=== PATIENT | female | born 1975 | race African-American/Black ===

== ENCOUNTER 2016-11-21 11:17 | Inpatient (IN) | payer OTHER ==
[~2016-11-21] VITALS: Ht 175.3 cm; Wt 61.0 kg
[2016-11-21] VITALS (15 sets, daily range): BP systolic 117–204; BP diastolic 55–72
[~2016-11-21 11:17] MED LIST: AMBIEN10 MG PO; AMBIEN5 MG PO; AMITRIPTYLINE H25 MG PO; APRESOLINE100 MG PO; ATIVAN1 MG PO; Ambien PO; Ativan PO; BENTYL20 MG PO; BYSTOLIC10 MG PO; Bystolic PO; CALCITRIOL0.5 MCG PO; CARAFATE1 GM PO; CARDIZEM CD120 MG PO; CARDURA4 MG PO; CATAPRES0.2 MG PO; CLONIDINE HCL0.2 MG PO; Cardura PO; Catapres PO; DILAUDID2 MG PO; DILAUDID4 MG PO; DILAUDID8 MG PO; DOXYCYCLINE HY100 MG PO; FUROSEMIDE80 MG PO; Feosol PO; HYDRALAZINE HC100 MG PO; IRON325 M1 PO; IRON325 MG PO; KLONOPIN0.5 M1 PO; LASIX80 MG PO; LEVAQUIN500 MG PO; LIDOPRIL 2.5%-1 EACH TP; Lasix PO; MEGACE20 MG PO; NORVASC10 MG PO; Norvasc PO; ONDANSETRON ODT4 MG PO; PHENERGAN25 MG PR; PHOSLO667 MG PO; PREDNISONE20 MG PO; PROMETHAZINE HC25 M1 PO; PROTONIX40 MG PO; Phoslo PO; Protonix PO; REGLAN5 MG PO; RENVELA800 MG PO; ROCALTROL0.5 MCG PO; Reglan PO; Rocaltrol PO; SYMBICORT60 INHALA1 IH; TRAZODONE HCL50 MG PO; VENTOLIN HFA18 GM IH; Vicodin,Norco 5/325 PO; ZOFRAN ODT4 MG PO
[2016-11-21 11:32] LABS: CREATININE 9.9 mg/dL (0.6-1.3); POTASSIUM 5.3 mEq/L (3.7-5.4)
[2016-11-21] MEDS ORDERED: ROCALTROL0.25 MCG PO (11:39)
[2016-11-21 11:47] LABS: BASOPHIL COUNT 0.1 K/uL (0-0.1); EOSINOPHIL (%) 6.6 % (0-5); EOSINOPHIL COUNT 0.6 K/uL (0-0.3); IMMATURE GRANULOCYTE (%) 0.1 % (0.0-0.7); IMMATURE GRANULOCYTE COUNT 0.1 K/uL; LYMPHOCYTE COUNT 3.3 K/uL (1.0-2.8); MONOCYTE (%) 8.3 % (3-12); MONOCYTE COUNT 0.8 K/uL (0-0.8); NEUTROPHIL (%) 50.3 % (45-76); NEUTROPHIL COUNT 4.8 K/uL (1.8-6.4)
[2016-11-21 11:54] LABS: CHLORIDE 107 mEq/L (99-109); POTASSIUM 5.5 mEq/L (3.7-5.4); SODIUM 140 mEq/L (136-147)
[2016-11-21 11:56] LABS: GLUCOSE 198 mg/dL (70-99)
[2016-11-21 11:57] LABS: ANION GAP 19 MEQ/L (2-14)
[2016-11-21 11:58] LABS: TOTAL BILIRUBIN 0.9 mg/dL (0.0-1.0)
[2016-11-21 11:58] LABS: HEMATOCRIT 37.2 % (36.0-46.0); MCH 26.7 PG (29.0-34.0); MCHC 33.1 G/DL (30.0-36.0); MCV 80.7 FL (83-99); RBC DIS.WIDTH-SD 61.2 % (39-53); RED BLOOD COUNT 4.61 M/uL (3.80-5.20); WHITE BLOOD COUNT 9.5 K/uL (4.1-10.2)
[2016-11-21 12:00] LABS: ALKALINE PHOSPHATASE 81 IU/L (3-129); GFR ESTIMATE (CALCULATED) 5 mL/min/
[2016-11-21 12:01] LABS: UREA NITROGEN (BUN) 80 mg/dL (9-23)
[2016-11-21 12:06] LABS: NRBC (%) 0.3 /100 WBC (0-0)
[2016-11-21 12:08] LABS: QUANTITATIVE HCG < 4.0 MIU/ML
[2016-11-21 12:14] LABS: BICARBONATE 20.4 mEq/L (22-26); CARBOXY HGB 3.1 % (0-5); METHEMOGLOBIN 0.4 % (0-1.5); PO2 106 mm Hg (80-100)
[2016-11-21 12:18] LABS: COMMENTS - BLOOD GASES A+C+; DEVICE 840; FI02 100 %; MECHANICAL RATE 16 resp/min; MODE AC; PCO2 60 mm Hg (35-45); PEEP 7 CM/H20; SITE LR; TIDAL VOLUME 450 ML; TOTAL RESP RATE 16 resp/min; pH 7.14 (7.35-7.45)
[2016-11-21 12:27] LABS: TROP-I INTERPRETATION NEGATIVE; TROPONIN-I 0.06 ng/mL (0.0-0.30)
[2016-11-21 12:31] LABS: HEMATOLOGY COMMENT 1 SMEAR COMPATIBLE; PLAT.SUFFICIENCY ADEQUATE; PLATELET COUNT 172 K/uL (156-360); USER ID TLW
[2016-11-21 15:24] LABS: MAGNESIUM 2.5 mg/dL (1.3-2.7)
[2016-11-21 16:01] LABS: METH RESISTANT S AUREUS PCR NEGATIVE (NEGATIVE)
[2016-11-21 16:08] LABS: PROBE CHECK PASS; SPECIMEN PROCESSING CONTROL PASS
[2016-11-22] VITALS (7 sets, daily range): BP systolic 135–161; BP diastolic 52–68
[2016-11-22 06:40] LABS: ANION GAP 16 MEQ/L (2-14); CHLORIDE 97 MEQ/L (99-109); MAGNESIUM 2.2 mg/dl (1.3-2.7); POTASSIUM 4.6 MEQ/L (3.7-5.4); SAMPLE HEMOLYSIS CHECK 0; SAMPLE ICTERIC CHECK 0; SAMPLE LIPEMIA CHECK 0; SODIUM 140 MEQ/L (136-147); UREA NITROGEN (BUN) 42 mg/dL (9-23)
[2016-11-22 06:51] LABS: GFR ESTIMATE (CALCULATED) 9 mL/min/; GLUCOSE 100 mg/dL (70-99)
[2016-11-22 06:55] LABS: EOSINOPHIL (%) 0.3 % (0-5); HEMATOCRIT 34.2 % (36.0-46.0); IMMATURE GRANULOCYTE (%) 0.2 % (0.0-0.7); LYMPHOCYTE COUNT 0.6 K/uL (1.0-2.8); MCH 26.5 PG (29.0-34.0); MCV 80.1 FL (83-99); MONOCYTE (%) 6.4 % (3-12); MONOCYTE COUNT 0.6 K/uL (0-0.8); NEUTROPHIL (%) 86.6 % (45-76); NEUTROPHIL COUNT 7.9 K/uL (1.8-6.4); RBC DIS.WIDTH-CV 21.6 % (11.8-14.6); RBC DIS.WIDTH-SD 61.8 % (39-53); RED BLOOD COUNT 4.27 M/uL (3.80-5.20); WHITE BLOOD COUNT 9.1 K/uL (4.1-10.2)
[2016-11-22 07:00] LABS: HEMATOLOGY COMMENT 1 SMEAR COMPATIBLE; PLAT.SUFFICIENCY ADEQUATE; PLATELET COUNT 150 K/uL (156-360); USER ID CCL
== END 2016-11-22 10:53 | disposition left against medical advice (07) | DRG 208 ==
LOC: EME 11:17 → 4WEST 14:16 → EDOF 14:16 → 4WEST 14:29
PROVIDERS: Emergency Medicine; Internal Medicine Nephrology
PROC: 5A09357 Assistance with Respiratory Ventilation, Less than 24 Consecutive Hours, Continuous Positive Airway Pressure (ICD-10-PCS; principal; 2016-11-21)
PROC: 5A1935Z Respiratory Ventilation, Less than 24 Consecutive Hours (ICD-10-PCS; principal; 2016-11-21)
PROC: 5A1D60Z (ICD-10-PCS; principal; 2016-11-21)
PROC: 0BH17EZ Insertion of Endotracheal Airway into Trachea, Via Natural or Artificial Opening (ICD-10-PCS; principal; 2016-11-21)
DX: J96.01 Acute respiratory failure with hypoxia (principal); N18.6 End stage renal disease; J81.0 Acute pulmonary edema; I12.0 Hypertensive chronic kidney disease with stage 5 chronic kidney disease or end stage renal disease; Z94.0 Kidney transplant status; E87.4 Mixed disorder of acid-base balance; K92.1 Melena; E87.5 Hyperkalemia; Z99.2 Dependence on renal dialysis; F32.9 Major depressive disorder, single episode, unspecified; F41.9 Anxiety disorder, unspecified; F17.200 Nicotine dependence, unspecified, uncomplicated; Z91.15 Patient's noncompliance with renal dialysis; D63.1 Anemia in chronic kidney disease; J45.909 Unspecified asthma, uncomplicated; D57.3 Sickle-cell trait
CPT/HCPCS: 36600; 71010; 80047; 80048; 80053; 82803; 82948; 83605; 83735; 84100; 84484; 84702; 85025; 87070; 87205; 87641; 94002; 94640; 94799; 99202; 99281; 99285; C9113; J1644; J1940; J2405; J2704; J3010

== ENCOUNTER 2017-01-11 09:13 | Day surgery (SDC) | payer OTHER ==
[~2017-01-11] VITALS: Ht 168.9 cm; Wt 56.0 kg
[~2017-01-11 09:13] MED LIST changes: +CARDURA2 M1 PO; +DILTIAZEM 24HR120 MG PO; +ROCALTROL0.25 MCG PO
[2017-01-11 11:04] LABS: METH RESISTANT S AUREUS PCR NEGATIVE (NEGATIVE)
[2017-01-11 11:05] LABS: PROBE CHECK PASS; SPECIMEN PROCESSING CONTROL PASS
[2017-01-11 13:26] VITALS: BP 117/62
== END 2017-01-11 12:25 | disposition home or self-care (01) ==
LOC: CATH 09:13
PROVIDERS: Surgery
DX: T82.858A Stenosis of other vascular prosthetic devices, implants and grafts, initial encounter (principal); Y83.2 Surgical operation with anastomosis, bypass or graft as the cause of abnormal reaction of the patient, or of later complication, without mention of misadventure at the time of the procedure; Z99.2 Dependence on renal dialysis; I12.0 Hypertensive chronic kidney disease with stage 5 chronic kidney disease or end stage renal disease; N18.6 End stage renal disease; D57.1 Sickle-cell disease without crisis; Z94.0 Kidney transplant status
CPT/HCPCS: 87641; C1725; C1769; C1894; J1644; J2250; J3010

== ENCOUNTER 2017-01-24 00:54 | Emergency (ER) | payer OTHER ==
[~2017-01-24] VITALS: Ht 167.6 cm; Wt 61.4 kg
[2017-01-24 01:14] LABS: BASE EXCESS 1.3 mEq/L (-3 to +3); BICARBONATE 25.9 mEq/L (22-26); CARBOXY HGB 4.2 % (0-5); COMMENTS - BLOOD GASES C+; DEVICE NEB TX; METHEMOGLOBIN 0.2 % (0-1.5); O2 FLOW 8 L/MIN; PCO2 40 mm Hg (35-45); PO2 64 mm Hg (80-100); SITE LR; pH 7.42 (7.35-7.45)
[2017-01-24 01:32] LABS: INTER. NORMALIZED RATIO 1.2; PROTHROMBIN TIME 11.8 (9.2-11.2); PTT 29.8 (25-32)
[2017-01-24 01:35] LABS: CHLORIDE 103 mEq/L (99-109); POTASSIUM 4.1 mEq/L (3.7-5.4); SODIUM 140 mEq/L (136-147)
[2017-01-24 01:37] LABS: GLUCOSE 118 mg/dL (70-99)
[2017-01-24 01:39] LABS: ANION GAP 14 MEQ/L (2-14); TOTAL BILIRUBIN 0.7 mg/dL (0.0-1.0)
[2017-01-24 01:41] LABS: ALKALINE PHOSPHATASE 100 IU/L (3-129); GFR ESTIMATE (CALCULATED) 7 mL/min/
[2017-01-24 01:42] LABS: UREA NITROGEN (BUN) 61 mg/dL (9-23)
[2017-01-24 01:44] LABS: TROP-I INTERPRETATION NEGATIVE; TROPONIN-I 0.05 ng/mL (0.0-0.30)
[2017-01-24 01:44] LABS: LIPASE 23 U/L (1.0-51.0)
[2017-01-24 02:35] LABS: EOSINOPHIL (%) 3.1 % (0-5); EOSINOPHIL COUNT 0.3 K/uL (0-0.3); HEMATOCRIT 37.3 % (36.0-46.0); HEMATOLOGY COMMENT 1 REV; IMMATURE GRANULOCYTE (%) 0.2 % (0.0-0.7); IMMATURE GRANULOCYTE COUNT 0.2 K/uL; LYMPHOCYTE COUNT 1.1 K/uL (1.0-2.8); MCH 26.8 PG (29.0-34.0); MCHC 33.2 G/DL (30.0-36.0); MCV 80.6 FL (83-99); MONOCYTE COUNT 0.5 K/uL (0-0.8); NEUTROPHIL (%) 81.7 % (45-76); NEUTROPHIL COUNT 8.8 K/uL (1.8-6.4); PLAT.SUFFICIENCY DECREASED; PLATELET COUNT 101 K/uL (156-360); RBC DIS.WIDTH-CV 19.7 % (11.8-14.6); RBC DIS.WIDTH-SD 54.9 % (39-53); RED BLOOD COUNT 4.63 M/uL (3.80-5.20); USER ID SLU; WHITE BLOOD COUNT 10.8 K/uL (4.1-10.2)
[2017-01-24 03:28] VITALS: BP 140/66
== END 2017-01-24 03:44 | disposition left against medical advice (07) ==
LOC: EME → EDBD 00:54 → EME 03:44
PROVIDERS: Emergency Medicine
DX: J44.1 Chronic obstructive pulmonary disease with (acute) exacerbation (principal); I11.0 Hypertensive heart disease with heart failure; I50.9 Heart failure, unspecified; I12.0 Hypertensive chronic kidney disease with stage 5 chronic kidney disease or end stage renal disease; N18.6 End stage renal disease; Z99.2 Dependence on renal dialysis; F17.200 Nicotine dependence, unspecified, uncomplicated; Z94.0 Kidney transplant status
CPT/HCPCS: 36600; 71010; 80053; 82803; 83605; 83690; 84484; 85025; 85610; 85730; 93005; 94640; 99281; 99285; J1940

== ENCOUNTER 2017-02-17 03:20 | Emergency (ER) | payer OTHER ==
[~2017-02-17] VITALS: Ht 167.6 cm; Wt 62.7 kg
[2017-02-17 03:52] LABS: CARBON DIOXIDE (BICARBONATE) 31.2 MEQ/L (20-31)
[2017-02-17 04:05] LABS: HEMATOCRIT 34.8 % (36.0-46.0); MCH 26.3 PG (29.0-34.0); MCHC 32.2 G/DL (30.0-36.0); MCV 81.7 FL (83-99); PLATELET COUNT 118 K/uL (156-360); RBC DIS.WIDTH-CV 19.1 % (11.8-14.6); RBC DIS.WIDTH-SD 54.4 % (39-53); RED BLOOD COUNT 4.26 M/uL (3.80-5.20)
[2017-02-17 04:08] LABS: CHLORIDE 99 mEq/L (99-109); POTASSIUM 3.6 mEq/L (3.7-5.4); SODIUM 139 mEq/L (136-147); WHITE BLOOD COUNT 7.2 K/uL (4.1-10.2)
[2017-02-17 04:09] LABS: GLUCOSE 132 mg/dL (70-99)
[2017-02-17 04:11] LABS: ANION GAP 15 MEQ/L (2-14)
[2017-02-17 04:13] LABS: GFR ESTIMATE (CALCULATED) 6 mL/min/
[2017-02-17 04:14] LABS: UREA NITROGEN (BUN) 55 mg/dL (9-23)
[2017-02-17] MEDS ORDERED: LEVAQUIN750 MG PO (05:46)
[2017-02-17 06:58] VITALS: BP 122/53
== END 2017-02-17 06:58 | disposition left against medical advice (07) ==
LOC: EME 03:20
PROVIDERS: Emergency Medicine
DX: I50.9 Heart failure, unspecified (principal); J18.9 Pneumonia, unspecified organism; E87.6 Hypokalemia; E83.51 Hypocalcemia; N18.6 End stage renal disease; Z99.2 Dependence on renal dialysis; Z94.0 Kidney transplant status; Z87.891 Personal history of nicotine dependence
CPT/HCPCS: 71010; 80048; 82803; 83605; 85027; 87040; 93005; 94640; 94640 76; 94799; 99281; 99285; J1940; J1956; J2930; J3475

== ENCOUNTER 2017-03-16 07:18 | Inpatient (IN) | payer OTHER ==
[~2017-03-16] VITALS: Ht 167.6 cm; Wt 65.0 kg
[~2017-03-16 07:18] MED LIST changes: +LEVAQUIN750 MG PO
[2017-03-16 07:39] LABS: BASE EXCESS 0.9 mEq/L (-3 to +3); BICARBONATE 26.6 mEq/L (22-26); METHEMOGLOBIN 0.1 % (0-1.5); PO2 265 mm Hg (80-100); pH 7.37 (7.35-7.45)
[2017-03-16 07:40] LABS: COMMENTS - BLOOD GASES A+C+; DEVICE MASK VENT; FI02 100 %; PCO2 46 mm Hg (35-45); PEEP 5 CM/H20; PRES. SUPPORT 15 CM/H2O; SITE LR; TIDAL VOLUME 450 ML; TOTAL RESP RATE 20 resp/min
[2017-03-16 08:09] LABS: HEMATOCRIT 35.2 % (36.0-46.0); MCH 26.3 PG (29.0-34.0); MCHC 32.1 G/DL (30.0-36.0); MCV 81.9 FL (83-99); MEAN PLAT.VOLUME 11.1 uM^3 (9.5-12.4); PLATELET COUNT 134 K/uL (156-360); RBC DIS.WIDTH-CV 19.5 % (11.8-14.6); RBC DIS.WIDTH-SD 56.2 % (39-53)
[2017-03-16 08:13] LABS: WHITE BLOOD COUNT 11.4 K/uL (4.1-10.2)
[2017-03-16 08:34] LABS: ANION GAP 13 MEQ/L (2-14); CHLORIDE 100 MEQ/L (99-109); GFR ESTIMATE (CALCULATED) 8 mL/min/; GLUCOSE 99 mg/dL (70-99); POTASSIUM 3.9 MEQ/L (3.7-5.4); SAMPLE HEMOLYSIS CHECK 0; SAMPLE ICTERIC CHECK 0; SAMPLE LIPEMIA CHECK 0; SODIUM 140 MEQ/L (136-147); UREA NITROGEN (BUN) 62 mg/dL (9-23)
[2017-03-16] MEDS ORDERED: CARDURA4 MG PO (11:23)
[2017-03-16] MEDS ORDERED: DILAUDID8 MG PO (11:24)
[2017-03-16] MEDS ORDERED: PANTOPRAZOLE SO40 MG PO (11:34)
[2017-03-16] MEDS ORDERED: OXYCODONE HCL15 MG PO (11:36)
[2017-03-16] MEDS ORDERED: ALBUTEROL2.5 MG/3 M IH (11:36)
[2017-03-16] MEDS ORDERED: SYMBICORT60 INHALA1 IH (11:37)
[2017-03-16] MEDS ORDERED: VENTOLIN HFA18 GM IH (11:37)
[2017-03-16] MEDS ORDERED: VITAMIN D31000 UNI2 PO (11:39)
[2017-03-16] MEDS ORDERED: CALCITRIOL0.25 MCG PO (11:42)
[2017-03-16 12:06] LABS: BASE EXCESS 3.2 mEq/L (-3 to +3); BICARBONATE 27.9 mEq/L (22-26); CARBOXY HGB 2.3 % (0-5); METHEMOGLOBIN 0.6 % (0-1.5); PCO2 42 mm Hg (35-45); pH 7.43 (7.35-7.45)
[2017-03-16 12:07] LABS: COMMENTS - BLOOD GASES A+C+; FI02 0.21 %; PO2 55 mm Hg (80-100); SITE RB; TOTAL RESP RATE 19 resp/min
[2017-03-16 13:09] VITALS: BP 172/74
[2017-03-16 14:35] VITALS: BP 168/74
[2017-03-16 14:56] LABS: INFLUENZA A VIRAL ANTIGEN NEGATIVE; INFLUENZA B VIRAL ANTIGEN NEGATIVE
[2017-03-16 15:24] VITALS: BP 178/77
[2017-03-16 15:51] LABS: ADD MIUA? YES; BILIRUBIN NEGATIVE; BLOOD NEGATIVE; COLOR YELLOW ((YELLOW)); GLUCOSE (STRIP) NEGATIVE; KETONES NEGATIVE; LEUKOCYTES NEGATIVE; NITRITE NEGATIVE; PROTEIN (STRIP) 100; SPECIFIC GRAVITY 1.011 (1.000-1.030); UROBILINOGEN 0.2 MG/DL (0.2-1.0)
[2017-03-16 16:35] LABS: ADD MEDTOX COMMENT Y; AMPHETAMINE NEGATIVE (500 ng/mL); BACTERIA NONE SEEN /HPF; BARBITURATES NEGATIVE (200 ng/mL); BENZODIAZEPINES NEGATIVE (150 ng/mL); COCAINE NEGATIVE (150 ng/mL); EPITHELIAL CELLS RARE /HPF; INTERNAL CONTROLS VALID? YES; METHADONE NEGATIVE (200 ng/mL); METHAMPHETAMINE NEGATIVE (500 ng/mL); MUCUS NONE SEEN /LPF; OPIATES (MORPHINE) PRESUMPTIVE POSITIVE (100 ng/mL); OXYCODONE PRESUMPTIVE POSITIVE (100 ng/mL); PHENCYCLIDINE NEGATIVE (25 ng/mL); PROPOXYPHENE NEGATIVE (300 ng/mL); RED BLOOD CELLS 0-5 /HPF (0-5); THC CANNABINOIDS NEGATIVE (50 ng/mL); TRICYCLIC ANTIDEPRESSANTS NEGATIVE (300 ng/mL); UCUL ADDED? NO; WHITE BLOOD CELLS 0-5 /HPF (0-5)
[2017-03-16 18:15] VITALS: BP 158/70
[2017-03-16 19:32] VITALS: BP 160/68
[2017-03-16 23:40] VITALS: BP 155/66
[2017-03-17] VITALS (21 sets, daily range): BP systolic 122–192; BP diastolic 56–90
[2017-03-17 05:26] LABS: BASE EXCESS -0.7 mEq/L (-3 to +3); BICARBONATE 23.4 mEq/L (22-26); CARBOXY HGB 1.7 % (0-5); COMMENTS - BLOOD GASES C+; DEVICE NRBM; FI02 100 %; METHEMOGLOBIN 1.2 % (0-1.5); PCO2 36 mm Hg (35-45); PO2 81 mm Hg (80-100); SITE RR; pH 7.42 (7.35-7.45)
[2017-03-17 06:05] LABS: EOSINOPHIL (%) 3.4 % (0-5); EOSINOPHIL COUNT 0.3 K/uL (0-0.3); HEMATOCRIT 37.4 % (36.0-46.0); IMMATURE GRANULOCYTE (%) 0.4 % (0.0-0.7); LYMPHOCYTE COUNT 2.2 K/uL (1.0-2.8); MCH 26.1 PG (29.0-34.0); MCHC 31.8 G/DL (30.0-36.0); MEAN PLAT.VOLUME 11.6 uM^3 (9.5-12.4); MONOCYTE (%) 6.9 % (3-12); MONOCYTE COUNT 0.6 K/uL (0-0.8); NEUTROPHIL (%) 65.4 % (45-76); PLATELET COUNT 156 K/uL (156-360); RBC DIS.WIDTH-CV 19.7 % (11.8-14.6); RBC DIS.WIDTH-SD 56.4 % (39-53); RED BLOOD COUNT 4.56 M/uL (3.80-5.20); WHITE BLOOD COUNT 9.2 K/uL (4.1-10.2)
[2017-03-17 06:34] LABS: ANION GAP 14 MEQ/L (2-14); CHLORIDE 98 MEQ/L (99-109); GFR ESTIMATE (CALCULATED) 7 mL/min/; GLUCOSE 153 mg/dL (70-99); POTASSIUM 4.1 MEQ/L (3.7-5.4); SAMPLE HEMOLYSIS CHECK 0; SAMPLE ICTERIC CHECK 0; SAMPLE LIPEMIA CHECK 0; SODIUM 137 MEQ/L (136-147); UREA NITROGEN (BUN) 73 mg/dL (9-23)
[2017-03-17 07:10] LABS: INTER. NORMALIZED RATIO 1.1; PROTHROMBIN TIME 11.4 (9.2-11.2); PTT 28.4 (25-32)
[2017-03-17 07:14] LABS: ALKALINE PHOSPHATASE 131 IU/L (3-129); ANION GAP 13 MEQ/L (2-14); CHLORIDE 99 MEQ/L (99-109); GFR ESTIMATE (CALCULATED) 7 mL/min/; POTASSIUM 4.1 MEQ/L (3.7-5.4); SAMPLE HEMOLYSIS CHECK 0; SAMPLE ICTERIC CHECK 0; SAMPLE LIPEMIA CHECK 0; SODIUM 137 MEQ/L (136-147); TOTAL BILIRUBIN 0.8 MG/DL (0.0-1.0); UREA NITROGEN (BUN) 73 mg/dL (9-23)
[2017-03-17 07:16] LABS: GLUCOSE 152 mg/dL (70-99)
[2017-03-17 07:56] LABS: INTERNAL CONTROL VALID? YES
[2017-03-17 11:04] LABS: METH RESISTANT S AUREUS PCR NEGATIVE (NEGATIVE)
[2017-03-17 11:05] LABS: SPECIMEN PROCESSING CONTROL PASS
[2017-03-17 11:06] LABS: PROBE CHECK PASS
[2017-03-18 04:00] VITALS: BP 150/70
[2017-03-18 07:00] VITALS: BP 167/88
[2017-03-18 08:44] LABS: HEMATOCRIT 28.2 % (36.0-46.0); MCH 26.1 PG (29.0-34.0); MCV 79.2 FL (83-99); RBC DIS.WIDTH-CV 18.7 % (11.8-14.6); RBC DIS.WIDTH-SD 52.3 % (39-53)
[2017-03-18 08:46] LABS: RED BLOOD COUNT 3.56 M/uL (3.80-5.20); WHITE BLOOD COUNT 12.3 K/uL (4.1-10.2)
[2017-03-18 09:09] LABS: ANION GAP 13 MEQ/L (2-14); CHLORIDE 100 MEQ/L (99-109); GFR ESTIMATE (CALCULATED) 7 mL/min/; POTASSIUM 4.6 MEQ/L (3.7-5.4); SAMPLE HEMOLYSIS CHECK 0; SAMPLE ICTERIC CHECK 0; SAMPLE LIPEMIA CHECK 0; SODIUM 135 MEQ/L (136-147); UREA NITROGEN (BUN) 88 mg/dL (9-23)
[2017-03-18 09:10] LABS: GLUCOSE 107 mg/dL (70-99); VANCOMYCIN, TROUGH 11.5 MCG/ML (10-20)
[2017-03-18 09:33] LABS: PLAT.SUFFICIENCY DECREASED; PLATELET COUNT 110 K/uL (156-360)
[2017-03-18 11:30] VITALS: BP 194/74
[2017-03-18] MEDS ORDERED: CALCIUM ACETAT667 MG PO (12:19)
[2017-03-18] MEDS ORDERED: DILTIAZEM 24HR120 MG PO (12:19)
[2017-03-18] MEDS ORDERED: PREDNISONE10 MG PO (12:19)
== END 2017-03-18 13:23 | disposition left against medical advice (07) | DRG 190 ==
LOC: EME 07:18 → EDOF 11:22 → 4EAST 11:22 → 5SOUTH 11:22 → 4WEST 11:22 → 5SOUTH 12:59 → 4WEST 03-17 05:36 → 4EAST 03-17 21:12
PROVIDERS: Emergency Medicine; Internal Medicine; Internal Medicine Critical Care Medicine; Internal Medicine Nephrology
PROC: 5A1D00Z (ICD-10-PCS; principal; 2017-03-18)
DX: J44.0 Chronic obstructive pulmonary disease with (acute) lower respiratory infection (principal); J96.01 Acute respiratory failure with hypoxia; J18.9 Pneumonia, unspecified organism; Y95 Nosocomial condition; I12.0 Hypertensive chronic kidney disease with stage 5 chronic kidney disease or end stage renal disease; N18.6 End stage renal disease; Z99.2 Dependence on renal dialysis; F41.9 Anxiety disorder, unspecified; G89.29 Other chronic pain; R40.0 Somnolence; J81.1 Chronic pulmonary edema; F17.210 Nicotine dependence, cigarettes, uncomplicated; T86.12 Kidney transplant failure; E87.70 Fluid overload, unspecified; J44.1 Chronic obstructive pulmonary disease with (acute) exacerbation; J45.909 Unspecified asthma, uncomplicated; D57.3 Sickle-cell trait; D63.1 Anemia in chronic kidney disease; N25.81 Secondary hyperparathyroidism of renal origin
CPT/HCPCS: 36600; 71010; 80048; 80053; 80069; 80202; 81003; 82565; 82803; 83605; 83880; 84999; 85025; 85027; 85610; 85730; 87040; 87449; 87502; 87641; 93005; 94002; 94640; 94640 76; 99202; 99281; 99285; J1644; J1940; J1956; J2060; J2930; J3370; J7644

== ENCOUNTER 2017-07-10 03:24 | Emergency (ER) | payer OTHER ==
[~2017-07-10] VITALS: Ht 167.6 cm; Wt 61.6 kg
[~2017-07-10 03:24] MED LIST changes: +ALBUTEROL2.5 MG/3 M IH; +CALCITRIOL0.25 MCG PO; +CALCIUM ACETAT667 MG PO; +OXYCODONE HCL15 MG PO; +PANTOPRAZOLE SO40 MG PO; +PREDNISONE10 MG PO; +VITAMIN D31000 UNI2 PO
[2017-07-10] MEDS ORDERED: MOTRIN600 MG PO (05:40)
[2017-07-10 05:57] VITALS: BP 164/63
== END 2017-07-10 05:59 | disposition home or self-care (01) ==
LOC: EME 03:24
DX: S93.602A Unspecified sprain of left foot, initial encounter (principal); S93.402A Sprain of unspecified ligament of left ankle, initial encounter; W10.9XXA Fall (on) (from) unspecified stairs and steps, initial encounter; I10 Essential (primary) hypertension; Z88.5 Allergy status to narcotic agent; Z88.6 Allergy status to analgesic agent; Z91.041 Radiographic dye allergy status; F17.200 Nicotine dependence, unspecified, uncomplicated
CPT/HCPCS: 73610; 73630; 99281; 99284

== ENCOUNTER 2017-12-23 11:29 | Day surgery (SDC) | payer OTHER ==
[~2017-12-23] VITALS: Ht 168.9 cm; Wt 63.6 kg
[~2017-12-23 11:29] MED LIST changes: +MOTRIN600 MG PO
[2017-12-23 12:08] VITALS: BP 144/65
[2017-12-23 12:33] LABS: BASOPHIL (%) 0.5 % (0-1); EOSINOPHIL (%) 4.6 % (0-5); EOSINOPHIL COUNT 0.3 K/uL (0-0.3); HEMATOCRIT 31.5 % (36.0-46.0); HEMOGLOBIN 10.5 G/DL (11.9-15.5); IMMATURE GRANULOCYTE (%) 0.2 % (0.0-0.7); LYMPHOCYTE (%) 12.9 % (15-42); LYMPHOCYTE COUNT 0.8 K/uL (1.0-2.8); MCHC 33.3 G/DL (30.0-36.0); MONOCYTE (%) 7.8 % (3-12); MONOCYTE COUNT 0.5 K/uL (0-0.8); NEUTROPHIL COUNT 4.4 K/uL (1.8-6.4); PLATELET COUNT 115 K/uL (156-360); RBC DIS.WIDTH-CV 17.7 % (11.8-14.6); RBC DIS.WIDTH-SD 50.7 % (39-53); RED BLOOD COUNT 3.89 M/uL (3.80-5.20); WHITE BLOOD COUNT 5.9 K/uL (4.1-10.2)
[2017-12-23 12:58] LABS: CHLORIDE 103 MEQ/L (99-109); CREATININE 9.6 MG/DL (0.6-1.3); GFR ESTIMATE (CALCULATED) 6 mL/min/; GLUCOSE 99 mg/dL (70-99); POTASSIUM 4.8 MEQ/L (3.7-5.4); SODIUM 139 MEQ/L (136-147); UREA NITROGEN (BUN) 59 mg/dL (9-23)
== END 2017-12-23 23:10 | disposition home or self-care (01) ==
LOC: SDC 11:29 → 2EASTP 11:30
PROVIDERS: Surgery
DX: T82.590A Other mechanical complication of surgically created arteriovenous fistula, initial encounter (principal); M79.605 Pain in left leg; I12.0 Hypertensive chronic kidney disease with stage 5 chronic kidney disease or end stage renal disease; N18.6 End stage renal disease; Z88.0 Allergy status to penicillin; Z88.5 Allergy status to narcotic agent; Z88.8 Allergy status to other drugs, medicaments and biological substances; Z91.041 Radiographic dye allergy status; Y83.2 Surgical operation with anastomosis, bypass or graft as the cause of abnormal reaction of the patient, or of later complication, without mention of misadventure at the time of the procedure
CPT/HCPCS: 80048; 85025; C1725; C1769; C1894; G0257; G0378; J1644; J2250; J3010

== ENCOUNTER 2018-01-27 09:46 | Emergency (ER) | payer OTHER ==
[~2018-01-27] VITALS: Ht 167.6 cm; Wt 59.1 kg
[2018-01-27 10:06] VITALS: BP 180/68
[2018-01-27 10:21] LABS: BASOPHIL (%) 0.5 % (0-1); BASOPHIL COUNT 0.1 K/uL (0-0.1); EOSINOPHIL COUNT 0.4 K/uL (0-0.3); HEMATOCRIT 38.7 % (36.0-46.0); HEMOGLOBIN 12.7 G/DL (11.9-15.5); IMMATURE GRANULOCYTE (%) 0.2 % (0.0-0.7); LYMPHOCYTE (%) 17.7 % (15-42); LYMPHOCYTE COUNT 1.6 K/uL (1.0-2.8); MCH 26.6 PG (29.0-34.0); MCHC 32.8 G/DL (30.0-36.0); MONOCYTE COUNT 0.6 K/uL (0-0.8); NEUTROPHIL (%) 71.6 % (45-76); NEUTROPHIL COUNT 6.6 K/uL (1.8-6.4); PLATELET COUNT 158 K/uL (156-360); RBC DIS.WIDTH-CV 18.5 % (11.8-14.6); RBC DIS.WIDTH-SD 52.7 % (39-53); RED BLOOD COUNT 4.78 M/uL (3.80-5.20); WHITE BLOOD COUNT 9.2 K/uL (4.1-10.2)
[2018-01-27 10:26] LABS: INTER. NORMALIZED RATIO 1.1
[2018-01-27 10:28] LABS: PTT 32.2 SEC (25-37)
[2018-01-27 10:34] LABS: CHLORIDE 100 mEq/L (99-109); POTASSIUM 4.3 mEq/L (3.7-5.4); SODIUM 141 mEq/L (136-147)
[2018-01-27 10:35] LABS: MAGNESIUM 2.8 mg/dL (1.3-2.7)
[2018-01-27 10:36] LABS: GLUCOSE 124 mg/dL (70-99)
[2018-01-27 10:40] LABS: CREATININE 9.6 mg/dL (0.6-1.3); GFR ESTIMATE (CALCULATED) 6 mL/min/
[2018-01-27 10:41] LABS: UREA NITROGEN (BUN) 56 mg/dL (9-23)
[2018-01-27 10:44] LABS: TROP-I INTERPRETATION NEGATIVE; TROPONIN-I 0.04 ng/mL (0.0-0.30)
== END 2018-01-27 11:06 | disposition left against medical advice (07) ==
LOC: EME 09:46
PROVIDERS: Emergency Medicine
DX: J18.1 Lobar pneumonia, unspecified organism (principal); R09.02 Hypoxemia; R06.03 Acute respiratory distress; N18.6 End stage renal disease; Z99.2 Dependence on renal dialysis; Z94.0 Kidney transplant status; F41.9 Anxiety disorder, unspecified; F32.9 Major depressive disorder, single episode, unspecified; Z87.19 Personal history of other diseases of the digestive system; Z90.711 Acquired absence of uterus with remaining cervical stump; F17.200 Nicotine dependence, unspecified, uncomplicated; Z88.6 Allergy status to analgesic agent; Z88.5 Allergy status to narcotic agent; Z88.0 Allergy status to penicillin; Z88.8 Allergy status to other drugs, medicaments and biological substances; Z91.041 Radiographic dye allergy status
CPT/HCPCS: 71045; 80048; 83735; 84484; 85025; 85610; 85730; 93005; 99281; 99285

== ENCOUNTER 2018-06-30 02:05 | Emergency (ER) | payer OTHER ==
[~2018-06-30] VITALS: Ht 165.1 cm; Wt 61.2 kg
[2018-06-30 02:34] LABS: COMMENTS - BLOOD GASES C+A+; DEVICE VENT; FI02 60 %; PRES. SUPPORT 15 CM/H2O; SITE RR; TOTAL RESP RATE 27 resp/min
[2018-06-30 02:35] LABS: METHEMOGLOBIN 0.5 % (0-1.5); PCO2 46 mm Hg (35-45); PEEP 10 CM/H20; PO2 80 mm Hg (80-100); pH 7.35 (7.35-7.45)
[2018-06-30 02:36] LABS: BASE EXCESS -0.5 mEq/L (-3 to +3); BICARBONATE 25.4 mEq/L (22-26)
[2018-06-30 02:42] LABS: HEMATOCRIT 36.5 % (36.0-46.0); MCH 26.4 PG (29.0-34.0); MCHC 32.9 G/DL (30.0-36.0); MCV 80.2 FL (83-99); RBC DIS.WIDTH-CV 17.4 % (11.8-14.6); RBC DIS.WIDTH-SD 49.3 % (39-53); RED BLOOD COUNT 4.55 M/uL (3.80-5.20); WHITE BLOOD COUNT 7.7 K/uL (4.1-10.2)
[2018-06-30 02:45] LABS: PTT 28.3 SEC (25-37)
[2018-06-30 02:50] LABS: CHLORIDE 96 mEq/L (99-109); POTASSIUM 4.7 mEq/L (3.7-5.4); SODIUM 138 mEq/L (136-147)
[2018-06-30 02:52] LABS: GLUCOSE 150 mg/dL (70-99)
[2018-06-30 02:53] LABS: TOTAL PROTEIN 7.8 g/dL (6.4-8.3)
[2018-06-30 02:54] LABS: TOTAL BILIRUBIN 0.7 mg/dL (0.0-1.0)
[2018-06-30 02:56] LABS: ALKALINE PHOSPHATASE 109 IU/L (3-129); CREATININE 10.6 mg/dL (0.6-1.3); GFR ESTIMATE (CALCULATED) 5 mL/min/
[2018-06-30 02:57] LABS: UREA NITROGEN (BUN) 58 mg/dL (9-23)
[2018-06-30 02:58] LABS: AST (GOT) 45 IU/L (2-34)
[2018-06-30 02:59] LABS: ALT (GPT) 19 IU/L (3-49); LIPASE 51 U/L (1.0-51.0)
[2018-06-30 03:19] LABS: PLAT.SUFFICIENCY DECREASED; PLATELET COUNT 108 K/uL (156-360)
[2018-06-30 07:34] VITALS: BP 121/52
== END 2018-06-30 13:56 | disposition left against medical advice (07) ==
LOC: EME → EDBD 02:05 → EME 02:05
PROVIDERS: Emergency Medicine
PROC: 5A1D70Z Performance of Urinary Filtration, Intermittent, Less than 6 Hours Per Day (ICD-10-PCS; principal; 2018-06-30)
DX: I13.2 Hypertensive heart and chronic kidney disease with heart failure and with stage 5 chronic kidney disease, or end stage renal disease (principal); N18.6 End stage renal disease; I50.9 Heart failure, unspecified; R06.03 Acute respiratory distress; Z99.2 Dependence on renal dialysis; Z94.0 Kidney transplant status; G89.29 Other chronic pain; F41.9 Anxiety disorder, unspecified; F32.9 Major depressive disorder, single episode, unspecified; F17.200 Nicotine dependence, unspecified, uncomplicated; Z87.19 Personal history of other diseases of the digestive system; Z90.711 Acquired absence of uterus with remaining cervical stump; Z88.0 Allergy status to penicillin; Z88.5 Allergy status to narcotic agent; Z88.6 Allergy status to analgesic agent; Z88.8 Allergy status to other drugs, medicaments and biological substances; Z91.041 Radiographic dye allergy status
CPT/HCPCS: 36600; 71045; 80053; 83605; 83690; 85027; 85610; 85730; 87040; 93005; 94002; 94644; 99281; 99285; J1644; J1940

== ENCOUNTER 2018-07-20 07:06 | Emergency (ER) | payer OTHER ==
[~2018-07-20] VITALS: Ht 167.6 cm; Wt 60.4 kg
[2018-07-20 08:00] LABS: BASOPHIL (%) 0.4 % (0-1); EOSINOPHIL (%) 1.4 % (0-5); EOSINOPHIL COUNT 0.1 K/uL (0-0.3); HEMATOCRIT 31.2 % (36.0-46.0); HEMOGLOBIN 10.4 G/DL (11.9-15.5); IMMATURE GRANULOCYTE (%) 0.4 % (0.0-0.7); LYMPHOCYTE (%) 7.5 % (15-42); LYMPHOCYTE COUNT 0.7 K/uL (1.0-2.8); MCH 26.3 PG (29.0-34.0); MCHC 33.3 G/DL (30.0-36.0); MCV 78.8 FL (83-99); MONOCYTE (%) 3.3 % (3-12); MONOCYTE COUNT 0.3 K/uL (0-0.8); NEUTROPHIL COUNT 8.6 K/uL (1.8-6.4); PLATELET COUNT 127 K/uL (156-360); RBC DIS.WIDTH-CV 17.9 % (11.8-14.6); RBC DIS.WIDTH-SD 50.9 % (39-53); RED BLOOD COUNT 3.96 M/uL (3.80-5.20); WHITE BLOOD COUNT 9.9 K/uL (4.1-10.2)
[2018-07-20 08:30] LABS: TROP-I INTERPRETATION NEGATIVE; TROPONIN-I 0.06 ng/mL (0.0-0.30)
[2018-07-20 08:33] LABS: CHLORIDE 101 MEQ/L (99-109); CREATININE 9.2 MG/DL (0.6-1.3); GFR ESTIMATE (CALCULATED) 6 mL/min/; GLUCOSE 149 mg/dL (70-99); POTASSIUM 3.8 MEQ/L (3.7-5.4); SODIUM 139 MEQ/L (136-147); UREA NITROGEN (BUN) 45 mg/dL (9-23)
[2018-07-20 12:19] VITALS: BP 140/56
== END 2018-07-20 12:22 | disposition left against medical advice (07) ==
LOC: EME 07:06
PROVIDERS: Physician Assistant
DX: J18.9 Pneumonia, unspecified organism (principal); R09.02 Hypoxemia; I50.9 Heart failure, unspecified; I13.2 Hypertensive heart and chronic kidney disease with heart failure and with stage 5 chronic kidney disease, or end stage renal disease; N18.6 End stage renal disease; Z94.0 Kidney transplant status; Z99.2 Dependence on renal dialysis; Z88.0 Allergy status to penicillin; Z90.711 Acquired absence of uterus with remaining cervical stump; F17.200 Nicotine dependence, unspecified, uncomplicated; Z53.20 Procedure and treatment not carried out because of patient's decision for unspecified reasons
CPT/HCPCS: 71045; 80048; 84484; 85025; 87040; 93005; 94799; 99281; 99285; J1940; J1956; J3370